=== PATIENT | female | born 1985 | race Caucasian/White ===

== ENCOUNTER 2017-07-25 13:47 | Emergency (ER) | payer SELFPAY ==
[~2017-07-25] VITALS: Ht 162.6 cm; Wt 65.8 kg
[~2017-07-25 13:47] MED LIST: CEPHALEXIN500 MG ORAL; NKM
[2017-07-25] MEDS ORDERED: Ketorolac 60mg Inj IV ONE (15:15)
[2017-07-25] MEDS ORDERED: DiphenhydrAMINE 50mg/ml Inj IVP ONE (15:15)
--- NOTE | 2017-07-25 15:18 | Emergency Room Report ---
History of Present Illness General Chief Complaint: Headache Source: Patient Present Illness HPI 32yo F complains of left-sided , sometimes right-sided Symptoms have been moderate to severe and intermittent for a week and a half She reports photophobia She denies slurred speech, fevers chills, numbness tingling or weakness She reports + history of similar headaches in the past, and recent use of sumatriptan with only partial relief She deneis sudden onset, adn reports it has been gradually worsening today, but has had complete resolution for 2-3 days earlier in the week then returned She reports nausea but no vomiting Allergies: Coded Allergies: No Known Allergies (Unverified , 03/20/13) Patient History Past Medical History: see triage record Last Menstrual Period: 1month Now: No Reviewed Nursing Documentation: PMH: Agreed, PSxH: Agreed Nursing Documentation-PMH Past Medical History: No History, Except For Hx Neurological Problems: Yes - migraines Review of Systems All Other Systems: negative except mentioned in HPI Physical Exam Vital Signs Date Time Temp Pulse Resp B/P (MAP) Pulse Ox O2 Delivery O2 Flow Rate FiO2 07/25/17 14:22 97.9 73 18 117/64 100 Room Air Sp02 EP Interpretation: reviewed, normal General Appearance: normal inspection, well appearing, no apparent distress, alert, non-toxic Head: normocephalic Eyes: bilateral eye normal inspection, bilateral eye PERRL, bilateral eye EOMI ENT: normal ENT inspection, hearing grossly normal, normal pharynx, no angioedema, normal voice, moist mucus membranes Neck: normal inspection, full range of motion, supple, supple/symm/no masses Respiratory: chest non-tender, lungs clear, normal breath sounds, chest symmetrical, palpation of chest normal Cardiovascular #1: normal peripheral pulses, regular rate, rhythm Cardiovascular #2: 2+ radial (R), 2+ radial (L) Gastrointestinal: normal inspection, non tender, soft, no mass, no guarding, no rebound Rectal: deferred Genitourinary: normal inspection, no CVA tenderness Musculoskeletal: back normal, gait/station normal, normal range of motion, non- tender, no calf tenderness Neurologic: normal inspection, alert, oriented x3, responsive, lapidarist III-XII nml as tested, motor strength/tone normal, sensory intact, cerebellar normal - normal finger to nose bilaterally, stable gait, normal gait, speech normal Psychiatric: judgement/insight normal, memory normal, mood/affect normal, no suicidal/homicidal ideation Skin: normal color, no rash, warm/dry, normal turgor Lymphatic: no adenopathy Medical Decision Making Reaction to Intervention: Improved ER Course Patient with intermittent migraine-type headache for the past week, Given the migraine cocktail with Compazine Benadryl and Toradol with much improved She already has followup with her primary care doctor next week She'll be discharged with prescription for Compazine Last Vital Signs Date Time Temp Pulse Resp B/P (MAP) Pulse Ox O2 Delivery O2 Flow Rate FiO2 07/25/17 14:22 97.9 73 18 117/64 100 Room Air Disposition: HOME, SELF-CARE Condition: Improved Referrals: NON PHYSICIAN (PCP) BOBBY BEACH M.D Jul 25, 2017 15:18
[2017-07-25] MEDS ORDERED: COMPAZINE10 MG ORAL (15:20)
[2017-07-25] MEDS ORDERED: BENADRYL25 M3 PO (15:20)
[2017-07-25] MEDS ORDERED: Ketorolac 60mg Inj IM ONE (16:00)
[2017-07-25 16:28] VITALS: BP 126/78
== END 2017-07-25 16:32 | disposition home or self-care (01) ==
LOC: EMR 14:55
DX: G43.909 Migraine, unspecified, not intractable, without status migrainosus (principal)
CPT/HCPCS: 96372; 96374; 96375; 99284; J0780; J1200

== ENCOUNTER 2018-07-31 02:12 | Emergency (ER) | payer BC ==
[~2018-07-31] VITALS: Ht 157.5 cm; Wt 63.5 kg
[~2018-07-31 02:12] MED LIST changes: +BENADRYL25 M3 PO; +COMPAZINE10 MG ORAL
[2018-07-31 02:20] VITALS: BP 118/66
[2018-07-31 03:22] VITALS: BP 104/66
--- NOTE | 2018-07-31 04:08 | Emergency Room Report ---
History of Present Illness General Chief Complaint: Abdominal pain Source: Patient Present Illness HPI Patient presents with complaints of abdominal pain fairly diffuse in nature bilateral upper abdomen lower abdomen Onset for the past 2 days Denies any vomiting chest some mild nausea denies any diarrhea she felt somewhat constipated denies any chest pain or short of breath denies any fevers or chills denies any dysuria Patient also has some mild body ache Denies any low back pain denies any recent trauma Allergies: Coded Allergies: No Known Allergies (Unverified , 03/20/13) Patient History Past Medical History: see triage record Pertinent Family History: none Reviewed Nursing Documentation: PMH: Agreed; PSxH: Agreed Nursing Documentation-PMH Hx Neurological Problems: Yes - migraines Review of Systems All Other Systems: negative except mentioned in HPI Physical Exam 99% on room air which is normal Sp02 EP Interpretation: reviewed, normal General Appearance: well appearing, no apparent distress Head: normocephalic, atraumatic Eyes: bilateral eye PERRL, bilateral eye EOMI ENT: hearing grossly normal, normal pharynx, TMs + canals normal, uvula midline Neck: full range of motion, supple, no meningismus, no bony tend Respiratory: lungs clear, normal breath sounds, no rhonchi, no respiratory distress, no retraction, no accessory muscle use Cardiovascular #1: normal peripheral pulses, regular rate, rhythm, no edema, no gallop, no JVD, no murmur Gastrointestinal: normal bowel sounds, non tender - However subjectively holds her abdomen in both upper quadrants and also both lower quadrants with her hands for description of the location of subjective pain, soft, no mass, no organomegaly, non-distended, no guarding, no hernia, no pulsatile mass, no rebound Genitourinary: no CVA tenderness Musculoskeletal: normal inspection Neurologic: oriented x3, responsive, gate attendant III-XII nml as tested, motor strength/ tone normal, sensory intact Psychiatric: mood/affect normal Skin: normal color, no rash, warm/dry, palpation normal Lymphatic: normal inspection, no adenopathy Medical Decision Making Diagnostic Impression: Primary Impression: Abdominal pain Additional Impression: Ovarian cyst ER Course With the patient's history and examination, multiple differentials considered, including but not limited to , ectopic , ovarian torsion, gastritis, cholecystitis, pancreatitis, appendicitis Patient's white blood cell count was mildly elevated Patient did have improved findings after intervention however CT imaging was also obtained Patient does reveal signs of right-sided ovarian cyst the visualized portions of the appendix appeared normal Patient will have initial conservative outpatient trial and return with any worsening symptoms Labs Test 07/31/18 02:28 07/31/18 02:55 White Blood Count 13.0 K/UL (4.8-10.8) Red Blood Count 4.97 M/UL (4.20-5.40) Hemoglobin 10.9 G/DL (12.0-16.0) Hematocrit 35.6 % (37.0-47.0) Mean Corpuscular Volume 72 FL (80-99) Mean Corpuscular Hemoglobin 22.0 PG (27.0-31.0) Mean Corpuscular Hemoglobin Concent 30.8 G/DL (32.0-36.0) Red Cell Distribution Width 15.9 % (11.6-14.8) Platelet Count 399 K/UL (150-450) Mean Platelet Volume 6.9 FL (6.5-10.1) Neutrophils (%) (Auto) 67.4 % (45.0-75.0) Lymphocytes (%) (Auto) 26.5 % (20.0-45.0) Monocytes (%) (Auto) 3.6 % (1.0-10.0) Eosinophils (%) (Auto) 1.5 % (0.0-3.0) Basophils (%) (Auto) 0.9 % (0.0-2.0) Sodium Level 135 MMOL/L (136-145) Potassium Level 3.9 MMOL/L (3.5-5.1) Chloride Level 100 MMOL/L (98-107) Carbon Dioxide Level 23 MMOL/L (21-32) Anion Gap 12 mmol/L (5-15) Blood Urea Nitrogen 11 mg/dL (7-18) Creatinine 0.8 MG/DL (0.55-1.30) Estimat Glomerular Filtration Rate > 60 mL/min (>60) Glucose Level 96 MG/DL (74-106) Calcium Level 8.8 MG/DL (8.5-10.1) Total Bilirubin 0.2 MG/DL (0.2-1.0) Aspartate Amino Transf (AST/SGOT) 19 U/L (15-37) Alanine Aminotransferase (ALT/SGPT) 24 U/L (12-78) Alkaline Phosphatase 51 U/L (46-116) Total Protein 8.2 G/DL (6.4-8.2) Albumin 4.1 G/DL (3.4-5.0) Globulin 4.1 g/dL Albumin/Globulin Ratio 1.0 (1.0-2.7) Lipase 160 U/L (73-393) Urine Color Yellow Urine Appearance Clear Urine pH 5 (4.5-8.0) Urine Specific [place] 1.025 (1.005-1.035) Urine Protein Negative (NEGATIVE) Urine Glucose (UA) Negative (NEGATIVE) Urine Ketones Negative (NEGATIVE) Urine Blood Negative (NEGATIVE) Urine Nitrite Negative (NEGATIVE) Urine Bilirubin Negative (NEGATIVE) Urine Urobilinogen Normal MG/DL (0.0-1.0) Urine Leukocyte Esterase 1+ (NEGATIVE) Urine RBC 0-2 /HPF (0 - 2) Urine WBC 2-4 /HPF (0 - 2) Urine Squamous Epithelial Cells Few /LPF (NONE/OCC) Urine Bacteria Moderate /HPF (NONE) Urine HCG, Qualitative Negative (NEGATIVE) CT/MRI/US Diagnostic Results CT/MRI/US Diagnostic Results : Impression CT abdomen pelvisImpression: No acute or significant abnormality demonstrated A 4.4 cm benign-appearing, cystic lesion is seen in the right adnexa. No additional imaging or follow-up is recommended. Status: improved Disposition: HOME, SELF-CARE Condition: Improved Scripts Ibuprofen* (MOTRIN*) 600 Mg Tablet 600 MG ORAL Q8H PRN for For Pain, #20 TAB 0 Refills Prov: Marcelo Ace DO 07/31/18 Nitrofurantoin Monohyd/M-Cryst* (MACROBID 100 MG*) 100 Mg Capsule 100 MG ORAL EVERY 12 HOURS, #14 CAP Prov: Marcelo Ace DO 07/31/18 Additional Instructions: Patient is provided with the discharge instructions notified to follow up with primary doctor in the next 2-3 days otherwise return to the er with any worsening symptoms. Please note that this report is being documented using [employer] technology. This can lead to erroneous entry secondary to incorrect interpretation by the dictating instrument. Marcelo Ace DO Jul 31, 2018 04:08
--- NOTE | 2018-07-31 04:12 | NUR ---
ED Nurse Note: pt went to CT
--- NOTE | 2018-07-31 04:12 | NUR ---
[facility] DOWNTIME: For 07/31/2018 From 0200 to 0410, the following electronic documentation will be located in the patient handwritten chart, Following patient discharge, paper documentation will be scanned into [employer]PF with the remainder of the paper chart. Nursing Documentation Physician orders Medication Administration Records Medication Reconciliation Respiratory Documentation Dietary Documentation Case Management Documentation Plant Protection Superintendent Documentation
[2018-07-31 04:25] LABS: ALANINE AMINOTRANSFERASE 24 U/L (12-78); ALBUMIN 4.1 G/DL (3.4-5.0); ALKALINE PHOSPHATASE 51 U/L (46-116); ANION GAP 12 mmol/L (5-15); ASPARTATE AMINO TRANSFERASE 19 U/L (15-37); BILIRUBIN,TOTAL 0.2 MG/DL (0.2-1.0); BLOOD UREA NITROGEN 11 mg/dL (7-18); CALCIUM 8.8 MG/DL (8.5-10.1); CARBON DIOXIDE 23 MMOL/L (21-32); CHLORIDE 100 MMOL/L (98-107); CREATININE 0.8 MG/DL (0.55-1.30); POTASSIUM 3.9 MMOL/L (3.5-5.1); SODIUM 135 MMOL/L (136-145)
[2018-07-31 04:31] LABS: BASOPHILS % (AUTO) 0.9 % (0.0-2.0); EOSINOPHILS % (AUTO) 1.5 % (0.0-3.0); HEMATOCRIT 35.6 % (37.0-47.0); HEMOGLOBIN 10.9 G/DL (12.0-16.0); LYMPHOCYTES % (AUTO) 26.5 % (20.0-45.0); MEAN CORPUSCULAR VOLUME 72 FL (80-99); MONOCYTES % (AUTO) 3.6 % (1.0-10.0); NEUTROPHILS % (AUTO) 67.4 % (45.0-75.0); PLATELET COUNT 399 K/UL (150-450); RED BLOOD COUNT 4.97 M/UL (4.20-5.40); RED CELL DISTRIBUTION WIDTH 15.9 % (11.6-14.8)
[2018-07-31 04:31] LABS: APPEARANCE,URINE CLEAR; COLOR,URINE YELLOW
[2018-07-31 04:32] LABS: BILIRUBIN, URINE NEGATIVE (NEGATIVE); GLUCOSE, URINE (UA) NEGATIVE (NEGATIVE); KETONES,URINE NEGATIVE (NEGATIVE); LEUKOCYTE ESTERASE ,URINE 1+ (NEGATIVE); NITRITE,URINE NEGATIVE (NEGATIVE); PH,URINE 5 (4.5-8.0); PROTEIN,URINE NEGATIVE (NEGATIVE); UROBILINOGEN,URINE NORMAL MG/DL (0.0-1.0)
--- NOTE | 2018-07-31 04:32 | NUR ---
ED Nurse Note: PT BACK FROM CT
[2018-07-31] MEDS ORDERED: IBUPROFEN600 MG ORAL (05:52)
[2018-07-31] MEDS ORDERED: NITROFURANTOIN100 M2 ORAL (05:52)
--- NOTE | 2018-07-31 06:03 | NUR ---
ED Nurse Note: pt is d/c per ermd order, pt is aox4, on room air, with stable vital signs. pt was given dc and prescription instructions, pt was able to verbalize understanding, pt id band and iv site removed without complications. pt is able to ambulate with steady gait. pt took all belongings.
[2018-07-31 06:04] VITALS: BP 115/77
--- NOTE | 2018-08-01 08:27 | Diagnostic Imaging Report ---
Indication: Reason For Exam: PAIN Technique: Spiral acquisitions obtained through the abdomen and pelvis. No oral contrast utilized, per emergency room physician request No IV contrast utilized, per referring physician request.. Multiplanar reconstructions were generated. Total dose length product 874 mGycm. CTDIvol(s) 17 mGy. Dose reduction achieved using automated exposure control Comparison: None Findings: The appendix is normal. No evidence of diverticulosis or diverticulitis. No small bowel distention. No free or loculated intraperitoneal gas or fluid is evident. The distal esophagus, stomach, duodenum are unremarkable. Lack of IV contrast limits assessment of the solid organs. The liver, gallbladder, bile ducts, pancreas, spleen, adrenals, kidneys are unremarkable. No renal or ureteral calculi, hydronephrosis, or hydroureter demonstrated. No retroperitoneal or mesenteric mass or adenopathy. A 4.4 cm benign-appearing, cystic lesion is seen in the right adnexa. The uterus and left ovary are unremarkable. The included lung bases are clear. The bones are unremarkable Impression: No acute or significant abnormality demonstrated A 4.4 cm benign-appearing, cystic lesion is seen in the right adnexa. No additional imaging or follow-up is recommended. This agrees with the preliminary interpretation provided overnight by [facility]. The CT scanner at [facility] is accredited by the [employer] and the scans are performed using protocols designed to limit radiation exposure to as low as reasonably achievable to attain images of sufficient resolution adequate for diagnostic evaluation. Recommendations for adnexal lesion management based on maryjo Rangel al., J Am Janice Radiol 10:675-81 (2013).
== END 2018-07-31 06:03 | disposition home or self-care (01) ==
LOC: EMR 02:47
DX: R10.84 Generalized abdominal pain (principal); N83.201 Unspecified ovarian cyst, right side
CPT/HCPCS: 36415; 74150; 80053; 81003; 81025; 83690; 85025; 87086; 99284